=== PATIENT | male | born 1955 | race Caucasian/White ===

== ENCOUNTER 2023-09-15 08:54 | Outpatient (RCR) | payer MEDICARE, OTHER, BC, SELFPAY | END 2023-09-15 23:59 | disposition home or self-care (01) | LOC: RPT 08:54 | PROVIDERS: ATTENDING PHYSICIAN Specialist; FAMILY PHYSICIAN Family Medicine | DX: Z47.1 Aftercare following joint replacement surgery (principal); Z73.6 Limitation of activities due to disability; M62.81 Muscle weakness (generalized); R26.2 Difficulty in walking, not elsewhere classified; Z96.651 Presence of right artificial knee joint | CPT/HCPCS: 97010; 97110; 97112; 97140; 97162 ==

== ENCOUNTER 2023-10-05 13:51 | Outpatient (RCR) | payer MEDICARE, OTHER, BC, SELFPAY | END 2023-10-05 23:59 | disposition home or self-care (01) | LOC: RPT 13:51 | PROVIDERS: ATTENDING PHYSICIAN Specialist; FAMILY PHYSICIAN Family Medicine | DX: Z47.1 Aftercare following joint replacement surgery (principal); Z73.6 Limitation of activities due to disability; R26.2 Difficulty in walking, not elsewhere classified; M62.81 Muscle weakness (generalized); M25.561 Pain in right knee; Z96.651 Presence of right artificial knee joint | CPT/HCPCS: 97010; 97110; 97112; 97140; 97530 ==

== ENCOUNTER 2023-10-20 09:55 | Outpatient (RCR) | payer MEDICARE, OTHER, BC, SELFPAY | END 2023-10-20 23:59 | disposition home or self-care (01) | LOC: RPT 09:55 | PROVIDERS: ATTENDING PHYSICIAN Specialist; FAMILY PHYSICIAN Family Medicine | DX: Z47.1 Aftercare following joint replacement surgery (principal); Z73.6 Limitation of activities due to disability; R26.2 Difficulty in walking, not elsewhere classified; M62.81 Muscle weakness (generalized); M25.561 Pain in right knee; Z96.651 Presence of right artificial knee joint | CPT/HCPCS: 97110; 97535 ==

== ENCOUNTER → 2023-12-15 08:25 | Outpatient (REF) | payer MEDICARE, OTHER, BC, SELFPAY | LOC: RAD 08:25 | PROVIDERS: ATTENDING PHYSICIAN Family Medicine | DX: K40.90 Unilateral inguinal hernia, without obstruction or gangrene, not specified as recurrent (principal); M16.12 Unilateral primary osteoarthritis, left hip | CPT/HCPCS: 76882 ==

== ENCOUNTER 2024-02-01 06:41 | Day surgery (SDC) | payer MEDICARE, BC, OTHER, SELFPAY ==
[2024-02-01] VITALS (11 sets, daily range): BP systolic 118–142; BP diastolic 79–86; BMI 28.0
--- NOTE | 2024-02-01 07:21 | HP.FOC2 ---
Focused History & Physical
Chief Complaint
HPI:
Chief Complaint: Left inguinal hernia
HPI / Indication for Planned Procedure: Patient is a 68-year-old male recently seen in outpatient surgical evaluation secondary to a 1 year history of swelling and visible in the left inguinal region. CT imaging has confirmed a left indirect
inguinal hernia confirmed on examination presents today for scheduled operative correction.
Relevant Past Medical History: Other (GERD, asthma, history of basal cell, hemochromatosis, high cholesterol)
Relevant Social History: Negative
Relevant Family History: Negative
Relevant Past Surgical History: Positive for (Left knee surgery, right knee surgery, right knee surgery, right total knee arthroscopy)
Review of Systems
Review of Pertinent Systems: All Systems Negative
Medication
See Medication form for detailed medications: Yes
Medication List (including Herbals & OTC):
loratadine 10 mg tablet 10 mg PO HS 07/24/23
magnesium glycinate 100 mg tablet 100 mg PO DAILY ##0 07/24/23
frsuakogpkdb-gvibyeja-qalrnv tablet 1 tab PO DAILY ##0 07/24/23
rosuvastatin 5 mg tablet 5 mg PO HS 07/24/23
omeprazole 40 mg capsule,delayed release 40 mg PO Q48H 11/30/23
Medications Reviewed: Yes
Allergies and Reactions
Patient has Allergies: Yes
Noted Allergies and Reactions:
Allergy/AdvReac Type Severity Reaction Status Date / Time
amoxicillin Allergy Nausea Verified 01/27/24 10:22
Pertinent Physical Exam
All Other Systems: Negative
Head/Neck: Normal
Lungs: Normal
Heart: Normal
Abdomen: Other (left inguinal hernia)
Extremities: Normal
Neurological: Normal
Diagnosis / Assessment
68-year-old male presenting for scheduled operative correction left inguinal hernia
Plan / Procedure
Robotic assisted laparoscopic repair left inguinal hernia with mesh
Anesthesia/Sedation to be done by Anesthesia Provider: Yes
[2024-02-01] MEDS: TYLENOL 1000 MG PO (08:41)
[2024-02-01] MEDS: VANCOCIN 300 ML IV (08:47)
[2024-02-01] MEDS: VANCOCIN 300 MG IV (08:47)
[2024-02-01] MEDS: NORMOSOL-R 1000 IV (08:47)
--- NOTE | 2024-02-01 09:24 | W.SUR.PREOP ---
Pre-Operative Surgical Note
-
I have examined this patient prior to the performance of the scheduled procedure.
The patient's condition is unchanged from the time of the current History and
Physical and the patient is able to undergo the scheduled procedure.
--- NOTE | 2024-02-01 11:51 | W.IMMPOSTOP ---
Addendum entered and electronically signed by Suman Boston MD 02/01/24 12:02:
#[id number]
Original Note:
Surgical Immed Post Op Note
-
Primary Surgeon: Ludy
Assisting Surgeon: Pati Sung PA-c
Pre-op Diagnosis: Left inguinal hernia
Post-op Diagnosis: Left inguinal hernia, indirect
Procedure Performed: Robotic assisted laparoscopic VARGAS repair left inguinal hernia with mesh; 3D max large regular weight
Anesthesia Type: GETA +0.25% Marcaine
Specimen / Cultures: None
Estimated Blood Loss: 12 mL
Complications: None immediate
Operative Findings: Left indirect inguinal hernia. Moderate lipoma of cord reduced and excised to facilitate mesh placement. 3D max large regular weight mesh repair secured to Jonah's ligament with 2-0 Vicryl. Peritoneal flap closed with 2-0
Monocryl STRATAFIX spiral.
The assistance of Pati Sung PA-C was required due to the complexity of the procedure. During the procedure Pati Sung PA-C assisted with port placement, robotic instrumentation and suture material exchanges, and closure of the surgical incision
sites. I was present for the entirety of the operative procedure.
[2024-02-01] MEDS: SUBLIMAZE 50 MCG IV (12:24)
== END 2024-02-01 14:22 | disposition home or self-care (01) ==
LOC: SDS 06:41
PROVIDERS: ATTENDING PHYSICIAN Surgery
DX: K40.90 Unilateral inguinal hernia, without obstruction or gangrene, not specified as recurrent (principal)
CPT/HCPCS: 49650; C1781

== ENCOUNTER 2024-04-11 06:10 | Day surgery (SDC) | payer MEDICARE, BC, SELFPAY ==
--- NOTE | 2023-11-16 10:47 | CM ---
Addendum entered by Nataliia Wall 03/15/24 10:30:
[facility] referral completed and sent to [facility] through [employer] with request for start of care on 04/11.
Addendum entered by Nataliia Wall 03/07/24 10:08:
Patient's surgery date has changed to 04/11/24.
Original Note:
Patient is scheduled for an elective L THR on 12/21/23- he is a same day patient. Spoke with patient prior to surgery. Patient had a R TKR at in August 2023 (also as a same day patient). Reintroduced role of Orthopedic Navigator. Patient reports
that he lives with his in a one story home. There are two or three steps to enter and a flight of steps to the basement. He currently functions independently. He has a cane, raised toilet seat and a rolling walker. He had [facility] services through
[facility] after his TKR. PCP is Doug Cooper.
Discussed orthopedic program and post surgical plans. Reviewed that he will have [facility] services initially (medicare.gov website and ratings reviewed) and will then start outpatient PT. Patient selects [facility] (face sheet faxed to [facility] to facilitate
confirmation of benefits) for his home care needs and will come to for outpatient PT.
Patient is in agreement with plan and states that his will be home with him.
Patient will complete online education.
Plan: Orthopedic Navigator will remain available to assist with the care of patient and will reassess discharge needs after surgery.
[2023-12-07 09:12] VITALS: BMI 28.0
--- NOTE | 2023-12-07 09:52 | HPS.HSE ---
Family Physician
-
Family Physician: Doug Cooper, DO
Chief Complaint
-
Advanced O/A left hip.
History of Present Illness
68yo male with end stage arthritis of the left hip that has failed conservative
treatment measures. He has attempted multiple modalities including
intra-articular injection, self-directed exercise, activity
modification, NSAIDs, ice and heat. Imaging performed revealed bone-
on-bone changes end stage O/A. He was determined
to be in need of a left total hip arthroplasty. He currently denies
chest pain, shortness of breath, fever, chills, nausea, vomiting, or
diarrhea.
Medical History
Past Medical History
Past Medical History: Reports Other (see below)
Additional Past Medical History:
Osteoarthritis-R TKA CBB 08/2023.
Hypertriglyceridemia.
Asthma, mild and intermittent.
GERD.
Nonalcoholic fatty liver disease.
Irritable bowel syndrome.
Hemochromatosis.
Insomnia.
Past Surgical History: Reports Other (see below)
Additional Past Surgical History:
R TKA
Right knee arthroscopy x2
Left knee arthroscopy.
Social History
Tobacco: Non-smoker
Alcohol: Occasional
Living: With Family
Family History
Family History: Not pertinent
Allergies / Home Medications
Allergies reflects when Allergies were last updated in [facility].
Home Medications with original date entered in [facility]
Allergy/Medication List:
MEDICATIONS:
1. Centrum Silver multivitamin one tablet p.o. daily.
2. Loratadine 10 mg p.o. at bedtime.
3. Magnesium glycinate one tablet p.o. daily.
4. Omeprazole 40 mg p.o. every other day.
5. Rosuvastatin 5 mg p.o. at bedtime.
ALLERGIES: Seasonal. No known drug allergies.
Review of Systems
-
A 12 point ROS was completed and negative except as noted: Yes
Physical Exam
Physical Exam
General: Well Developed and Well Nourished
HEENT: NormoCephalic
Respiratory: Clear
Cardiac: S1/S2 and Regular Rhythm
GI: Soft, Non Tender, Normal Bowel Sounds, No Hernias (L ING hernia) and Other (medial edge of liver RUQ palpable)
Rectal: Other
Musculoskeletal: Other (left hip: pain with internal rotation to 15 degrees, external rotation to 20-no pain with abduction to 30 and flexion to 110)
Impression/Plan
-
CLEARANCES:
1. Primary medical, Dr. Doug Cooper, TBD s/p US to assess L ING hernia 12/15/2023.
Primary medical phone number: [phone].
2. Dental cleared.
IMPRESSION/PLAN:
1. Advanced primary osteoarthritis of the left total hip arthroplasty.
Benefits and risks of the procedure have been
explained to the patient. The patient understands these risks
and wishes to proceed.
2. Deep vein thrombosis prophylaxis: Aspirin.
Patient's phone number: [phone].
Patient's contact (Ellen Jarquin - Spouse): [phone].
[2023-12-07 10:07] LABS: Hematocrit 42.5 % (39.0-52.0); Hemoglobin 14.7 g/dL (13.0-18.0); Mean Corp Hgb Conc. 34.6 g/dL (33.0-37.0); Mean Corpuscular Hgb 32.5 pg (27.0-31.0); Mean Corpuscular Volume 93.8 fL (80.0-94.0); Mean Platelet Volume 10.4 fL (7.4-10.4); Platelet Count 224 10^3/uL (130-400); Red Blood Cell Count 4.53 10^6/uL (4.70-6.10); Red Cell Dist. Width 11.7 % (11.5-14.5); White Blood Cell Count 6.6 10^3/uL (4.8-10.8)
[2023-12-07 10:29] LABS: ALT (SGPT) 20 U/L (0-50); AST (SGOT) 29 U/L (17-59); Albumin 4.6 g/dl (3.5-5.0); Alkaline Phosphatase 75 U/L (38-126); Blood Urea Nitrogen 18 mg/dl (9-20); Carbon Dioxide 30 mmol/L (22-30); Chloride 103 mmol/L (98-107); Estimated Creatinine Clearance 77 ml/min; Glucose 88 mg/dl (70-99); Potassium 4.3 mmol/L (3.5-5.1); Sodium 139 mmol/L (135-145); Total Bilirubin 0.7 mg/dl (0.2-1.3); Total Protein 7.4 g/dl (6.3-8.2); eGFR > 60.00
[2023-12-07 14:07] VITALS: BMI 28.0
[2024-03-29 10:30] LABS: Hematocrit 39.6 % (39.0-52.0); Hemoglobin 14.1 g/dL (13.0-18.0); Mean Corp Hgb Conc. 35.6 g/dL (33.0-37.0); Mean Corpuscular Hgb 32.4 pg (27.0-31.0); Mean Platelet Volume 10.2 fL (7.4-10.4); Platelet Count 238 10^3/uL (130-400); Red Blood Cell Count 4.35 10^6/uL (4.70-6.10); Red Cell Dist. Width 12.2 % (11.5-14.5); White Blood Cell Count 4.8 10^3/uL (4.8-10.8)
[2024-03-29 11:03] LABS: ALT (SGPT) 18 U/L (0-50); AST (SGOT) 26 U/L (17-59); Albumin 4.5 g/dl (3.5-5.0); Alkaline Phosphatase 75 U/L (38-126); Blood Urea Nitrogen 17 mg/dl (9-20); Calcium 10.3 mg/dl (8.4-10.2); Carbon Dioxide 32 mmol/L (22-30); Chloride 104 mmol/L (98-107); Estimated Creatinine Clearance 77 ml/min; Glucose 80 mg/dl (70-99); Potassium 4.9 mmol/L (3.5-5.1); Sodium 141 mmol/L (135-145); Total Bilirubin 0.7 mg/dl (0.2-1.3); eGFR > 60.00
[2024-03-29 11:22] LABS: Glycohemoglobin (HgbA1c) 5.6 % (4.0-5.6)
[2024-03-29 12:19] VITALS: BMI 28.9
[2024-04-11] VITALS (12 sets, daily range): BP systolic 110–139; BP diastolic 62–89; BMI 28.9
[2024-04-11] MEDS: NORMOSOL-R 1000 IV (07:18)
[2024-04-11] MEDS: CELEBREX 200 MG PO (07:23)
[2024-04-11] MEDS: TYLENOL 650 MG PO (07:23)
--- NOTE | 2024-04-11 10:55 | SUR.PHASEI ---
Dr Richards informed of apnea, shallow breathing. Meena Heart RN BSN.
[2024-04-11] MEDS: ANCEF 5 IV (12:40)
== END 2024-04-11 13:15 | disposition home or self-care (01) ==
LOC: SDS 06:10
PROVIDERS: ATTENDING PHYSICIAN Specialist; FAMILY PHYSICIAN Family Medicine; OTHER PHYSICIAN Physician Assistant Medical
DX: M16.12 Unilateral primary osteoarthritis, left hip (principal)
CPT/HCPCS: 27130; 36415; 73502; 80053; 83036; 85027; 87070; 93005; 97162; C1713; C1776

== ENCOUNTER 2024-04-14 06:24 | Outpatient (RCR) | payer MEDICARE, BC, SELFPAY | END 2024-04-14 23:59 | disposition home or self-care (01) | LOC: RPT 06:24 | PROVIDERS: ATTENDING PHYSICIAN Specialist; FAMILY PHYSICIAN Family Medicine | DX: Z47.1 Aftercare following joint replacement surgery (principal); Z96.642 Presence of left artificial hip joint; Z73.6 Limitation of activities due to disability | CPT/HCPCS: 97110; 97162 ==

== ENCOUNTER 2024-05-12 09:53 | Outpatient (RCR) | payer MEDICARE, BC, SELFPAY | END 2024-05-12 23:59 | disposition home or self-care (01) | LOC: RPT 09:53 | PROVIDERS: ATTENDING PHYSICIAN Specialist; FAMILY PHYSICIAN Family Medicine | DX: Z47.1 Aftercare following joint replacement surgery (principal); Z96.642 Presence of left artificial hip joint; Z73.6 Limitation of activities due to disability | CPT/HCPCS: 97110; 97112; 97140; 97530 ==

== ENCOUNTER 2024-06-16 09:54 | Outpatient (RCR) | payer MEDICARE, BC, SELFPAY | END 2024-06-16 11:12 | disposition home or self-care (01) | LOC: RPT 09:54 | PROVIDERS: ATTENDING PHYSICIAN Specialist; FAMILY PHYSICIAN Family Medicine | DX: Z47.1 Aftercare following joint replacement surgery (principal); Z96.642 Presence of left artificial hip joint; Z73.6 Limitation of activities due to disability | CPT/HCPCS: 97110; 97140; 97530 ==